=== PATIENT | female | born 1960 | race Caucasian/White ===

== ENCOUNTER 2019-08-09 13:10 | Emergency (ER) | payer BC, OTHER ==
[2019-08-09 13:18] VITALS: BP 149/73; TEMP 98.3
[2019-08-09] MEDS ORDERED: AMOXIC-POT CLAV 875-125MG 1 EACH TAB PO STA (13:45)
[2019-08-09] MEDS ORDERED: DIPH,PERTUS(ACELL)TETVAC-LF 0.5 ML VIAL IM ONE (13:45)
--- NOTE | 2019-08-09 14:36 | XR ---
EXAMINATION TYPE: XR tibia fibula LT DATE OF EXAM: 08/09/2019 CLINICAL HISTORY: pain TECHNIQUE: AP and lateral images of the left tibia and fibula are obtained. COMPARISON: None. FINDINGS: There is no acute fracture/dislocation evident. The joint spaces appear within normal burch its. The overlying soft tissue appears unremarkable. IMPRESSION: There is no acute fracture or dislocation seen. ICD 10 NO FRACTURE, INITIAL EVALUATION
--- NOTE | 2019-08-09 14:41 | ED ---
Animal Bite HPI - General Chief Complaint: Animal Bite Stated Complaint: dog bite Time Seen by Provider: 08/09/19 13:20 Source: patient, RN notes reviewed Mode of arrival: ambulatory Limitations: no limitations - History of Present Illness Initial Comments: 59-year-old female presents emergency Department chief complaint of dog bite to her calf region. Patient states that they were talking across with a neighbor and bit her left and right calf. He states her last tetanus was in 2011. She states she believes the dog is up-to-date vaccination it is a household pet. Patient states that there is a small amount of bleeding into her right She has more pain to the left A small puncture wound. Patient denies other noted injuries at this time. - Related Data Home Medications Medication Instructions Recorded Confirmed Cholecalciferol [Vitamin D3] 2,000 unit PO DAILY 04/01/16 04/01/16 Hydrochlorothiazide [Hydrodiuril] 25 mg PO DAILY 04/01/16 04/01/16 Venlafaxine HCl ER [Effexor Xr] 150 mg PO DAILY 04/01/16 04/01/16 Vitamin B Complex 2 each PO DAILY 04/01/16 04/01/16 Previous Rx's Medication Instructions Recorded Amoxicillin/Potassium Clav 1 tab PO Q12HR #14 tab 08/09/19 [Augmentin 875-125 Tablet] Allergies Allergy/AdvReac Type Severity Reaction Status Date / Time No Known Allergies Allergy Verified 08/09/19 13:16 Review of Systems ROS Statement: Those systems with pertinent positive or pertinent negative responses have been documented in the HPI. ROS Other: All systems not noted in ROS Statement are negative. Past Medical History Additional Past Medical History / Comment(s): "WHITE COAT SYNDROME." VARICOSE VEINS. History of Any Multi-Drug Resistant Organisms: None Reported Past Surgical History: Tonsillectomy Past Anesthesia/Blood Transfusion Reactions: No Reported Reaction Past Psychological History: Anxiety, Depression Smoking Status: Never smoker Past Alcohol Use History: None Reported Past Drug Use History: None Reported - Past Family History Sister(s) Family Medical History: Cancer Mother Family Medical History: Deep Vein Thrombosis (DVT) General Exam Limitations: no limitations General appearance: alert, in no apparent distress Head exam: Present: atraumatic, normocephalic, normal inspection Eye exam: Present: normal appearance, PERRL, EOMI. Absent: scleral icterus, conjunctival injection, periorbital swelling ENT exam: Present: normal exam, normal oropharynx, mucous membranes moist, TM's normal bilaterally Neck exam: Present: normal inspection. Absent: tenderness, meningismus, lymphadenopathy Respiratory exam: Present: normal lung sounds bilaterally. Absent: respiratory distress, wheezes, rales, rhonchi, stridor Cardiovascular Exam: Present: regular rate, normal rhythm, normal heart sounds. Absent: systolic murmur, diastolic murmur, rubs, gallop, clicks Extremities exam: Present: other (Right calf there is a small puncture wound no active bleeding, neurovascular intact, left calf there is a small abrasion with a noted small puncture wound no active bleeding neurovascular intact mild tenderness) Course Vital Signs 08/09/19 13:14 Temperature 98.3 F Pulse Rate 96 Respiratory 16 Rate Blood Pressure 149/73 O2 Sat by Pulse 97 Oximetry Medical Decision Making - Medical Decision Making Patient's tetanus is updated. Patient be discharged on Augmentin. Patient did follow-up dog bite form. Return parameters were discussed. Disposition Clinical Impression: Dog bite Disposition: HOME SELF-CARE Condition: Stable Instructions (If sedation given, give patient instructions): Animal Bite (ED) Additional Instructions: Please return to the Emergency Department if symptoms worsen or any other concerns. Prescriptions: Amoxicillin/Potassium Clav [Augmentin 875-125 Tablet] 1 tab PO Q12HR #14 tab Is patient prescribed a controlled substance at d/c from ED?: No Referrals: Sylvia Arzola MD [Primary Care Provider] - 1-2 days Time of Disposition: 14:40
[2019-08-09 14:45] VITALS: PULSE 88; RESP 18
== END 2019-08-09 14:43 | disposition home or self-care (01) ==
LOC: EC 13:10
DX: S81.832A Puncture wound without foreign body, left lower leg, initial encounter (principal); S81.831A Puncture wound without foreign body, right lower leg, initial encounter; Z23 Encounter for immunization; Z20.3 Contact with and (suspected) exposure to rabies; W54.0XXA Bitten by dog, initial encounter
CPT/HCPCS: 90471; 90715; 99283

== ENCOUNTER → 2020-01-13 | Outpatient (CLI) | payer BC ==
--- NOTE | 2020-01-13 12:12 | XR ---
EXAMINATION TYPE: XR knee complete LT DATE OF EXAM: 01/13/2020 CLINICAL HISTORY: Stiffness and aching pain of left knee for less than one week. No known injury. TECHNIQUE: Three views of the left knee are obtained. COMPARISON: Left tibia fibula radiograph 08/09/2019 FINDINGS: There is no acute fracture/dislocation evident in left knee. There is tricompartmental deg enerative spurring. There is a small suprapatellar joint effusion. Normal osseous mineralization. IMPRESSION: 1. No acute osseous abnormality. 2. 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
== END | disposition home or self-care (01) ==
LOC: RADXRMAIN 11:16
PROVIDERS: ATTEND Family Medicine
DX: M17.12 Unilateral primary osteoarthritis, left knee (principal)

== ENCOUNTER → 2021-05-25 | Outpatient (CLI) | payer BC ==
[2021-05-25 10:09] LABS: HCT 42.3 % (34.0-46.0); HGB 14.5 gm/dL (11.4-16.0); MCH 31.9 pg (25.0-35.0); MCHC 34.4 g/dL (31.0-37.0); MCV 92.9 fL (80.0-100.0); Mean Platelet Volume 8.3; Platelet Count 272 k/uL (150-450); RBC 4.55 m/uL (3.80-5.40); WBC 5.8 k/uL (3.8-10.6)
[2021-05-25 10:21] LABS: ALT 25 U/L (4-34); AST 26 U/L (14-36); African American GFR (CKD) >90 (>60 ml/min/1.73 sqM); Albumin 4.3 g/dL (3.5-5.0); Alkaline Phosphatase 107 U/L (38-126); Anion Gap 6 mmol/L; Blood Urea Nitrogen 14 mg/dL (7-17); Calcium 10.3 mg/dL (8.4-10.2); Carbon Dioxide 30 mmol/L (22-30); Chloride 103 mmol/L (98-107); Glucose 90 mg/dL (74-99); INR 0.9 (<1.2); Non-African American GFR(CKD) 80 (>60 ml/min/1.73 sqM); Partial Thromboplastin Time 26.2 sec (22.0-30.0); Potassium 4.3 mmol/L (3.5-5.1); Prothrombin Time 9.8 sec (9.0-12.0); Sodium 139 mmol/L (137-145); Total Bilirubin 0.6 mg/dL (0.2-1.3); Total Protein 7.1 g/dL (6.3-8.2)
== END | disposition home or self-care (01) ==
LOC: LABWHC1 08:42
PROVIDERS: ATTEND Orthopaedic Surgery
DX: Z01.812 Encounter for preprocedural laboratory examination (principal)
CPT/HCPCS: 36415; 80053; 85027; 85610; 85730; 87070

== ENCOUNTER → 2021-05-25 | Outpatient (CLI) | payer BC ==
--- NOTE | 2021-05-25 12:38 | US ---
EXAMINATION TYPE: US carotid duplex BILAT DATE OF EXAM: 05/25/2021 COMPARISON: NONE CLINICAL HISTORY: H34.211 H34.211 PARTIAL RETINAL ARTERY OCCLUSION, RIGHT EYE. Per eye doctor, choles terol plaque seen in eye. No HTN or high cholesterol per patient. EXAM MEASUREMENTS: RIGHT: Peak Systolic Velocity (PSV) cm/sec ----- Right CCA: 105.0 ----- Right ICA: 104.0 ----- Right ECA: 108.0 ICA/CCA ratio: 1.0 RIGHT: End Diastole cm/sec ----- Right CCA: 29.2 ----- Right ICA: 29.2 ----- Right ECA: 20.8 LEFT: Peak Systolic Velocity (PSV) cm/sec ----- Left CCA: 108.0 ----- Left ICA: 342.0 ----- Left ECA: 118.0 ICA/CCA ratio: 3.2 LEFT: End Diastole cm/sec ----- Left CCA: 33.1 ----- Left ICA: 107.0 ----- Left ECA: 0.0 VERTEBRALS (direction of flow): Right Vertebral: Antegrade Left Vertebral: Antegrade Rhythm: Arrhythmia No increased peak systolic velocity bilateral common carotid arteries. Tortuous course near left romero tid bulb. Severe shadowing plaque at this level. Increased peak systolic and diastolic velocities and abnormal ratio on the left. IMPRESSION: Severe left carotid bulb plaque with suspected significant stenosis may be greater than 70%. Follow-up CTA or MRA of the neck advised to further evaluate and characterize. Criteria for Assigning % of Stenosis / Diameter reduction (Estimation based on the indirect measurements of the internal carotid artery velocities (ICA PSV). 1. Normal (no stenosis)=ICA PSV < 125 cm/s: ratio < 2.0: ICA EDV<40 cm/s. 2. Less than 50% stenosis=ICA PSV < 125 cm/s: ratio < 2.0: ICA EDV<40 cm/s. 3. 50 to 69% stenosis=ICA PSV of 125 to 230 cm/s: ration 2.0 ? 4.0: ICA EDV 40-100 cm/s. 4. Greater than 70% stenosis to near occlusion= ICA PSV > 230 cm/s: ratio > 4.0: ICA EDV > 100 cm/s. 5. Near occlusion= ICA PSV velocities may be low or undetectable: variable ratio and ICA EDV. 6. Total occlusion=unable to detect flow.
--- NOTE | 2021-05-31 08:17 | ECHOF ---
Referral Reason:H34.21 Partial retinal artery occlusion MEASUREMENTS -------- HEIGHT: 167.6 cm WEIGHT: 113.4 kg BP: 120/80 RVIDd: 3.2 cm (< 3.3) IVSd: 1.1 cm (0.6 - 1.1) LVIDd: 4.3 cm (3.9 - 5.3) LVPWd: 1.0 cm (0.6 - 1.1) IVSs: 1.5 cm LVIDs: 3.2 cm LVPWs: 1.6 cm LA Diam: 3.4 cm (2.7 - 3.8) LAESV Index (A-L): 18.82 ml/m Ao Diam: 2.9 cm (2.0 - 3.7) AV Cusp: 2.2 cm (1.5 - 2.6) MV EXCURSION: 17.586 mm (> 18.000) MV EF SLOPE: 122 mm/s (70 - 150) EPSS: 0.4 cm MV E Geoffrey: 0.91 m/s MV DecT: 225 ms MV A Geoffrey: 1.04 m/s MV E/A Ratio: 0.88 RAP: 5.00 mmHg RVSP: 28.99 mmHg FINDINGS -------- Sinus rhythm. This was a technically adequate study. The left ventricular size is normal. There is borderline concentric left ventricular hypertrophy. Overall left ventricular systolic function is normal with, an EF between 55 - 60 %. The right ventricle is normal in size. Normal LA size by volume 22+/-6 ml/m2. The right atrium is normal in size. Interatrial and interventricular septum intact. The aortic valve is trileaflet, and appears structurally normal. No aortic stenosis or regurgitation. Mild mitral regurgitation is present. Mild tricuspid regurgitation present. Right ventricular systolic pressure is normal at < 35 mmHg. The pulmonic valve is normal. The aortic root size is normal. Normal inferior vena cava with normal inspiratory collapse consistent with estimated right atrial pre ssure of 5 mmHg. There is no pericardial effusion. CONCLUSIONS -------- 1. The left ventricular size is normal. 2. There is borderline concentric left ventricular hypertrophy. 3. Overall left ventricular systolic function is normal with, an EF between 55 - 60 %. 4. The aortic valve is trileaflet, and appears structurally normal. No aortic stenosis or regurgitati on. 5. Mild mitral regurgitation is present. 6. Mild tricuspid regurgitation present. 7. There is no pericardial effusion. BALANCE ASSEMBLER: CONNER Watkins
== END | disposition home or self-care (01) ==
LOC: RADUSWWP 10:34
PROVIDERS: ATTEND Family Medicine
DX: H34.211 Partial retinal artery occlusion, right eye (principal); I65.22 Occlusion and stenosis of left carotid artery; I35.8 Other nonrheumatic aortic valve disorders
CPT/HCPCS: 93306; 93880

== ENCOUNTER 2021-06-05 10:10 | Day surgery (SDC) | payer BC ==
[2021-05-31 13:12] VITALS: BMI 40.3
[~2021-06-05 10:10] MED LIST: ACETAMINOPHEN TAB 500 MG TAB PO PRN; DEXAMETHASONE SOD PHOSPHATE 4 MG/ML 1 ML VIAL IV ONE; GABAPENTIN 300 MG CAP PO PRN; HYDROmorphone 0.2 MG/1 ML SYRINGE IVP PRN; HYDROmorphone 0.5 MG/0.5 ML SYRINGE IVP PRN; HYDROmorphone 1 MG/ML 1 ML SYRINGE IVP PRN; MAGNESIUM HYDROXIDE 2,400 MG/10 ML CUP PO PRN; MELOXICAM 7.5 MG TAB PO PRN; NALOXONE 0.4 MG/ML 1 ML VIAL IV PRN; ONDANSETRON 4 MG/2 ML VIAL IVP ONE; ONDANSETRON 4 MG/2 ML VIAL IVP PRN; ROPIVACAINE 246.25 MG, EPINEPHrine 0.5 MG, KETOROLAC (30 mg/mL) 30 MG, cloNIDine HCL/PF... MISCELLANE PRN; TRANEXAMIC ACID 1,000 MG in SODIUM CHLORIDE 0.9% 100 ML IVPB PRN
[2021-06-05] MEDS ORDERED: LACTATED RINGERS 1,000 ML IV ONE ×3 (10:23→12:28)
[2021-06-05] MEDS ORDERED: HEPARIN SODIUM,PORCINE 10,000 UNIT/ML 1 ML VIAL ONE (11:35)
[2021-06-05] MEDS ORDERED: KETAMINE 10 MG/ML 20 ML VIAL ONE (11:35)
[2021-06-05] MEDS ORDERED: PROPOFOL 10 MG/ML 20 ML VIAL IV ONE (11:35)
[2021-06-05] MEDS ORDERED: MIDAZOLAM 2 MG/2 ML VIAL ONE (11:35)
[2021-06-05] MEDS ORDERED: SODIUM CHLORIDE 0.9% 100 ML BAG ONE (11:35)
[2021-06-05] MEDS ORDERED: .fentaNYL (PF) 50 MCG/ML 2 ML AMP ONE (11:35)
[2021-06-05] MEDS ORDERED: diphenhydrAMINE 50 MG/ML 1 ML VIAL ONE (11:35)
[2021-06-05] MEDS ORDERED: SODIUM CHLORIDE 0.9% IRRIG 1,000 ML BTL IRRIGATION ONE (11:35)
[2021-06-05] MEDS ORDERED: TRANEXAMIC ACID 1,000 MG/10 ML VIAL ONE (11:35)
[2021-06-05] MEDS ORDERED: ceFAZolin 1,000 MG in SODIUM CHLORIDE 0.9% 1,000 ML IRRIGATION ONE (11:39)
[2021-06-05] MEDS ORDERED: ROPIVACAINE 5 MG/ML 30 ML VIAL MISCELLANE ONE ×2 (12:07→12:49)
--- NOTE | 2021-06-05 12:58 | P.OP ---
Date of Procedure: 06/05/21 Preoperative Diagnosis: Severe osteoarthritis right hip Postoperative Diagnosis: Severe osteoarthritis right hip Procedure(s) Performed: Right total hip arthroplasty with a direct anterior approach Implants: [employer] Polarstem standard size 5 [employer] R3, 3 hole hemispherical acetabular shell, 52 mm [employer] Reflection 6.5 mm cancellus screw, 20 mm 2 [employer] R3, XLPE 20 acetabular liner [employer] Oxinium femoral head 36 m, -3 All components were press-fit. The articulation is Oxinium on polyethylene. Anesthesia: spinal Surgeon: Mani Wu Fitness And Wellness Manager #1: Mckenzie Lovett Estimated Blood Loss (ml): 200 (67 mL returned with Cell Saver) Pathology: other (Femoral head) Condition: stable Disposition: PACU Indications for Procedure: After failure of conservative treatment we discussed the surgical and nonsurgical treatment options at length. Patient wishes to proceed with a total hip arthroplasty with a direct anterior approach. Complications specific to this procedure were discussed at length, including but not limited to infection, leg length discrepancy, dislocation, nerve injury, and fracture. Covid-19 was also discussed at length with the patient, and they are aware of the current policies and procedures. The patient was given the option of delaying surgery, but they elect to proceed knowing these risks. Patient is aware of all these complications and informed consent was obtained Operative Findings: The operative findings are consistent with severe osteoarthritis of the right hip Description of Procedure: Patient was seen and evaluated in the preoperative area and the consent was reviewed. The operative site was marked with a skin marker. The patient was then brought to the operating room and given preoperative antibiotics intravenously. 1 g of Tranexamic acid was also given intravenously. A spinal anesthetic was administered by the anesthesia department. The patient was then placed on the [place] table with the bony prominences well-padded. The hip area was then prepped with a ChloraPrep solution and draped in the usual sterile fashion. A universal timeout was then performed, which confirmed the patient's name, surgical site, ALLERGIES, and procedure being performed on the consent. Next the incision site was located at 1 cm distal and 2 cm lateral to the anterior superior iliac spine. The skin and subcutaneous tissues were sharply incised. Incision was carefully dissected down to the fascia overlying the tensor fascia aleyda muscle. This fascia was then incised in line with the incision. Care was taken to stay laterally in order to avoid injuring the lateral femoral cutaneous nerve. Next, using blunt finger dissection, the tensor fascia aleyda muscle was dissected off its investing fascia. The muscle was then carefully retracted laterally with a cobra retractor over the lateral neck of the femur. Next, the circumflex vessels were identified and cauterized using the AquaMantis device. The anterior hip capsule was then exposed. The capsule was then opened and an inverted T fashion. Cobra retractors were then placed intracapsularly. The retractors were maintained intracapsular throughout the procedure. The proximal femur was then visualized. Fluoroscopic x-rays were then taken in order to evaluate the preoperative leg lengths. A small amount of traction was placed on the leg. The femoral neck was then osteotomized appropriate level above the lesser trochanter. A small wedge of bone was then removed from the remaining femoral head. Next, using a corkscrew the femoral head was removed from the acetabulum. On gross visual inspection, the femoral head had complete loss of articular cartilage and multiple periarticular osteophytes. The femoral head was then measured. Attention was then turned to the acetabulum. The acetabulum was exposed and any remaining labrum was excised. Sequential reaming of the acetabulum was performed using fluoroscopic guidance until there was a good bed of bleeding cancellus bone. When the appropriate size was reached, a trial was then placed. The position and fit of the trial was checked with fluoroscopy. The trial was then removed. Then, using fluoroscopic guidance, the final implant was impacted at 20 of anteversion and 40 of abduction, and fully seated in the acetabulum. 2 screws were then placed in the acetabulum. Again fluoroscopy was used to check position of the screws. Next, the liner was then impacted, with a 20 elevated liner located in the anterior superior quadrant. Component locking was confirmed. Attention was then directed to the femur. With the aid of the [place] table, the femur was externally rotated to approximately 130, extended, and adducted under the opposite leg. A side hook was then placed under the proximal femur, and the side hook elevator was used to elevate the proximal femur while releasing the capsule. Retractors were then placed. A capsular release was performed, as well as a release of the conjoined tendon, which afforded excellent visualization of the proximal femur. Next, a box osteotome was used to lateralize the proximal femur. A sugar coating hand was then used to locate the femoral canal. Sequential broaching was then performed with appropriate size which afforded excellent fixation in the proximal femur. A trial was then placed with appropriate head and neck, and the hip was gently reduced with the aid of the [place] table. Fluoroscopy was then used to check position of the components, as well as to ensure equal leg lengths. The hip was then gently dislocated and the trials were then removed. Final implants were then impacted and the hip was again reduced. Final fluoroscopic x-rays confirmed that the components were in anatomic position, as well as equal leg lengths. The hip was also taken through range of motion, and found to be stable. The hip was then copiously irrigated with antibiotic solution with pulsatile lavage. The hip was then irrigated with Irrisept solution. The soft tissues were then injected with a 60 mg of .05% ropivacaine. A second dose of 1 g of Tranexamic acid was also given intravenously. Any blood collected by Cell Saver was then returned to the patient at this time. The fascia was then closed with 2-0 strata fix suture. The subcutaneous tissue was closed with 3-0 Vicryl. The subcuticular tissue was closed with 3-0 strata fix suture. The skin was then closed with Exofin skin glue. After the glue and dried, and Optifoam silver impregnated dressing was applied. The patient was then transferred to the recovery room in stable condition. The medical office receptionist assistant DOLLY Buitrago was required due to the complexity of surgery, and the need for skilled surgical aides teacher for positioning, draping, exposure, retraction, and closure of the wound.
--- NOTE | 2021-06-05 13:36 | XR ---
EXAMINATION TYPE: XR Hip Limited RT DATE OF EXAM: 06/05/2021 COMPARISON: NONE HISTORY: Postop TECHNIQUE: One view submitted. FINDINGS: There is postsurgical change in near anatomic alignment. There is soft tissue edema and emphysema. IMPRESSION: 1. Postoperative change. Appears in near-anatomic alignment.
--- NOTE | 2021-06-05 14:28 | FL ---
Fluoroscopy HISTORY: Anterior hip replacement on the right 47 seconds fluoroscopy time supplied to the referring clinician. 2 intraoperative C-arm images docum ent the procedure. See dictated report from orthopedic surgery.
[2021-06-05] MEDS: LACTATED RINGERS 1,000 ML IV SCH (14:35)
[2021-06-05] MEDS: SODIUM CHLORIDE 0.9% 1,000 ML IV SCH (14:35)
[2021-06-05] MEDS: HYDROcodone/APAP 7.5-325MG 1 EACH TAB PO PRN ×3 (16:22→21:17)
[2021-06-05] MEDS: PANTOPRAZOLE 40 MG TABLET PO SCH (17:13)
[2021-06-05 20:16] VITALS: RESP 17
--- NOTE | 2021-06-05 20:52 | CONS ---
CONSULTATION REASON FOR CONSULTATION: Advice regarding hypertension and other multiple medical issues, requested by Dr. Wu. HISTORY OF PRESENT ILLNESS: This 60-year-old woman with a past medical history of hypertension, DJD, history of white coat syndrome, being followed by Dr. Sylvia Arzola in the outpatient setting, was admitted after right total hip joint arthroplasty with direct anterior approach by Dr. Wu. There is no history of any fever, rigors or chills. No history of chest pain, palpitations, headache, loss of consciousness, seizures at this time. PAST MEDICAL HISTORY: Hypertension, history of DJD. HOME MEDICATIONS: Hydrochlorothiazide, Effexor, Detrol _, Senokot, Zofran, [place]. Doses are reviewed. ALLERGIES: NONE. FAMILY HISTORY: History of overactive bladder cancer in the family. SOCIAL HISTORY: No history of smoking. No history of alcohol intake. REVIEW OF SYSTEMS: ENT: No diminished hearing. No diminished vision. CARDIOVASCULAR SYSTEM: No angina, palpitations. RESPIRATORY SYSTEM: No cough, hemoptysis. GI: No nausea, vomiting, diarrhea. : No dysuria. NERVOUS SYSTEM: No numbness, weakness. ALLERGY/IMMUNOLOGY: No asthma or hay fever. MUSCULOSKELETAL: As mentioned earlier. HEMATOLOGY/ONCOLOGY: No history of anemia. ENDOCRINE: No history of diabetes or hypothyroidism. CONSTITUTIONAL: As mentioned earlier. DERMATOLOGY: Negative. RHEUMATOLOGY: Negative. PSYCHIATRY: As mentioned earlier. PHYSICAL EXAMINATION: Patient alert and oriented x3. Pulse 79, blood pressure 130/83, respiration 18, temperature 97.6, pulse ox 99% on room air. HEENT: Conjunctivae normal. NECK: No jugular venous distention. CARDIOVASCULAR: S1, S2 muffled. RESPIRATION: Breath sounds diminished at the bases. No rhonchi. No crackles. ABDOMEN: Soft, nontender. No mass palpable. LEGS: Status post hip arthroplasty. NERVOUS SYSTEM: Higher functions as mentioned earlier. Moves all 4 limbs. No focal motor or sensory deficit. LYMPHATICS: No lymph node palpable in neck, axillae or groin. SKIN: No ulcer, rash, bleeding. JOINTS: No active deforming arthropathy. LABS: Preop labs show CBC within normal limits. Coags are normal. Chemistry is also within normal limits. Calcium is 10.3. ASSESSMENT: 1. Status post right total hip joint arthroplasty. 2. Hypertension. 3. History of degenerative joint disease. 4. History of white coat syndrome. 5. History of varicose veins. 6. History of partial retinal artery occlusion on the right side. 7. History of tonsillectomy. 8. History of anxiety, depression. 9. Obesity with body mass of 39.9. 10.FULL CODE. RECOMMENDATIONS AND DISCUSSION: In this 60-year-old woman who presented with multiple medical issues, at this time I would recommend to continue the home medications. DVT prophylaxis. Incentive spirometry. Recommend close followup with Dr. Sylvia Arzola after discharge. We will follow the patient closely with you. Pain management. Thank you, Dr. Wu, for letting us participate in the care of this patient. MMODL / IJN: [id number] / MTDLea
[2021-06-05] MEDS ORDERED: SENNOSIDES-DOCUSATE SODIUM 1 EACH TAB PO SCH (21:00)
[2021-06-05] MEDS: ASPIRIN 325 MG TAB PO SCH (21:11)
[2021-06-06] MEDS: SODIUM CHLORIDE 0.9% 1,000 ML IV SCH (02:30)
[2021-06-06] MEDS: LACTATED RINGERS 1,000 ML IV SCH (04:31)
[2021-06-06] MEDS: HYDROcodone/APAP 7.5-325MG 1 EACH TAB PO PRN ×2 (05:26→13:30)
--- NOTE | 2021-06-06 08:00 | P.DS ---
Providers Expected date of discharge: 06/06/21 Attending physician: Mani Wu Consults: 06/05/21 08:55 Consult Physician Routine Consulting Provider: Tabby Lucero Consult Reason/Comments: medical management Do you want consulting provider notified?: Yes Primary care physician: Sylvia Arzola - Discharge Diagnosis(es) (1) Primary localized osteoarthritis of right hip Current Visit: Yes Status: Acute (2) Status post total hip replacement, right Current Visit: Yes Status: Acute Hospital Course: This is a 60-year-old Female with known history of degenerative arthritis of the Right hip. The patient presents for evaluation. After discussion and consideration patient elects to proceed with total hip arthroplasty with direct anterior approach. The patient is seen preoperatively by primary care physician and cleared for surgery. Patient is admitted to [facility] on 06/05/2021 for total hip arthroplasty with direct anterior approach. The procedure is performed without complication or sequelae. The patient is doing well postoperatively. Labs and vital signs are stable on day of discharge. On day of discharge patient's hip incision is healing well. There is minimal erythema. There is no drainage noted at this time. There is minimal soft tissue swelling to the hip and thigh. Patient has full foot and ankle motion without difficulty or pain. Neurovascular status to the lower extremity is intact. Patient is discharged to home in good condition. Please see med rec for accurate list of home medications. Patient Condition at Discharge: Good Plan - Discharge Summary Discharge Rx Participant: No New Discharge Prescriptions: New Aspirin 325 mg PO BID #60 tab Ondansetron Odt [Zofran Odt] 1 tab PO Q8HR PRN #10 tab PRN Reason: Nausea HYDROcodone/APAP 7.5-325MG [[place] 7.5-325] 1 - 2 tab PO Q6H PRN #32 tab PRN Reason: Pain Sennosides [Senokot] 2 tab PO DAILY PRN #60 tablet PRN Reason: Constipation No Action Venlafaxine HCl ER [Effexor Xr] 150 mg PO DAILY hydroCHLOROthiazide [Hydrodiuril] 25 mg PO DAILY Tolterodine ER [Detrol LA] 4 mg PO DAILY Discharge Medication List Venlafaxine HCl ER [Effexor Xr] 150 mg PO DAILY 04/01/16 [History] hydroCHLOROthiazide [Hydrodiuril] 25 mg PO DAILY 10/10/16 [History] Tolterodine ER [Detrol LA] 4 mg PO DAILY 05/31/21 [History] Aspirin 325 mg PO BID #60 tab 06/05/21 [Rx] HYDROcodone/APAP 7.5-325MG [[place] 7.5-325] 1 - 2 tab PO Q6H PRN #32 tab 06/05/21 [Rx] Ondansetron Odt [Zofran Odt] 1 tab PO Q8HR PRN #10 tab 06/05/21 [Rx] Sennosides [Senokot] 2 tab PO DAILY PRN #60 tablet 06/05/21 [Rx] Follow up Appointment(s)/Referral(s): Mani Wu DO [Doctor of Osteopathic Medicine] - 2 Weeks Activity/Diet/Wound Care/Special Instructions: Weightbearing as tolerated with walker. Leave dressing intact. Dressing may be removed by home care nurse or by patient in 7 days. Then change dressing twice daily until follow up. May shower with initial dressing intact and after removal. If dressing become saturated, please remove. Please take aspirin 325mg twice daily for 30 days to prevent blood clots. Recommend use of compression stockings daily until follow up to help prevent swelling and blood clots. May remove at night before sleeping. Please follow-up with [facility] in 2 weeks and call with any questions or concerns, . Discharge Disposition: HOME WITH HOME HEALTH SERVICES
[2021-06-06 08:33] VITALS: TEMP 97.5
[2021-06-06] MEDS: ASPIRIN 325 MG TAB PO SCH (08:40)
[2021-06-06] MEDS: PANTOPRAZOLE 40 MG TABLET PO SCH (08:41)
[2021-06-06] MEDS ORDERED: OXYBUTYNIN XL 5 MG TAB.ER.24 PO SCH (09:00)
[2021-06-06] MEDS ORDERED: hydroCHLOROthiazide 25 MG TAB PO SCH (09:00)
[2021-06-06] MEDS ORDERED: VENLAFAXINE HCL ER 150 MG CAP PO SCH (09:00)
[2021-06-06] MEDS ORDERED: MELOXICAM 7.5 MG TAB PO SCH (09:00)
[2021-06-06 09:38] LABS: Basophils # (A) 0.01 X 10*3/uL (0.00-0.10); Basophils % (A) 0.1 %; Eosinophils # (A) 0.05 X 10*3/uL (0.04-0.35); Eosinophils % (A) 0.5 %; HCT 38.5 % (37.2-46.3); HGB 12.8 g/dL (12.0-15.0); Lymphocytes # (A) 2.26 X 10*3/uL (0.90-5.00); MCH 31.5 pg (27.0-32.0); MCHC 33.2 g/dL (32.0-37.0); MCV 94.8 fL (80.0-97.0); Monocytes # (A) 1.23 X 10*3/uL (0.20-1.00); Monocytes % (A) 12.5 %; Neutrophils # (A) 6.26 X 10*3/uL (1.80-7.70); Neutrophils % (A) 63.7 %; Platelet Count 231 X 10*3/uL (140-440); RBC 4.06 X 10*6/uL (4.10-5.20); RDW 13.3 % (11.5-14.5); WBC 9.83 X 10*3/uL (4.50-10.00)
[2021-06-06 14:14] VITALS: BP 123/69; PULSE 84
--- NOTE | 2021-06-06 14:50 | P.PN ---
Subjective Progress Note Date: 06/06/21 This is a 60-year-old female who was recently admitted with orthopedic services and underwent right total hip joint arthroplasty with Dr. Wu. Patient is doing well and up and working with physical therapy twice today and being arranged for discharge today. Patient is being closely monitored and scheduled for discharge today. Patient denies any shortness of breath or chest pain and incentive spirometer at the bedside and encourage the patient to continue using at least 10 times every hour while awake. Patient being arranged with home care and rehab in the outpatient setting. Patient currently denies any chest pain, shortness of breath, or palpitations. Patient is afebrile. No reports of nausea or vomiting and patient tolerating diet. Patient reports the passing gas although has not had a bowel movement as of yet. Patient encouraged and instructed to follow-up with her primary care provider Dr. Arzola in the outpatient setting. Labs: WBC is 9.83, hemoglobin is 12.8, platelets are 231 Review of systems: Constitutional: No reports of fatigue, fever, or chills Cardiovascular: No reports of chest pain or palpitations Respiratory: No reports of shortness of breath or cough GI: No reports of nausea, vomiting, or diarrhea, reports passing gas but no bowel movement : No reports of dysuria or retention Neurovascular: No reports of weakness or numbness All medications have been reviewed Physical Exam: Gen: This is a 60-year-old female awake, alert and oriented 3, well-developed, well-nourished. Temp is 97.5F, pulse is 72, respirations are 17, blood pressure is 117/74, oxygen saturation is 98% on room air HEENT: Head is atraumatic, normocephalic. Pupils equal, round. Sclerae is anicteric. NECK: Supple. No JVD. No lymphadenopathy. No thyromegaly. LUNGS: Diminished breath sounds bilaterally with no wheezing or rhonchi noted. No intercostal retractions. HEART: S1, S2 are muffled ABDOMEN: Soft. Bowel sounds are present. No masses. No tenderness. EXTREMITIES: No pedal edema. No calf tenderness. Right hip surgical site dry and intact NEUROLOGICAL: Patient is awake, alert and oriented x3. Cranial nerves 2 through 12 are grossly intact. Assessment: Status post right total hip joint arthroplasty hypertension History of degenerative joint disease history of white coat syndrome History of varicose veins History of partial retinal artery occlusion on the right side History of tonsillectomy History of anxiety, depression obesity with a body mass index of 39.9 full code Plan: Recommend to continue with current medications and management. Pain management per orthopedic services. Encouraged incentive spirometer use and instructed the patient to keep using at least 10 times every hour while awake even in the outpatient setting. Appropriate home medications have been resumed and patient is to follow-up with primary care provider in the outpatient setting. Arrangements are being made for home care and physical therapy in the outpatient setting. Patient anticipates being discharged today and case management following arranging with home care in the outpatient setting. Will continue to follow along with orthopedic services during hospitalization. Thank you for this consultation. Objective - Vital Signs Vital signs: Vital Signs Temp 97.5 F L 06/06/21 08:00 Pulse 72 06/06/21 08:00 Resp 17 06/06/21 08:00 BP 117/74 06/06/21 08:00 Pulse Ox 98 06/06/21 08:00 Intake & Output 06/05/21 06/06/21 06/06/21 18:59 06:59 18:59 Intake Total 1841 Output Total 200 1600 Balance 1641 -1600 Weight 112 kg Intake: IV 1351 Intake, IV Titration 50 Amount ceFAZolin 2 gm In Sodium 50 Chloride 0.9% 50 ml @ 100 mls/hr IVPB Q8H [facility] Rx#: [id number] Oral 440 Output: Urine 1600 Estimated Blood Loss 200 Other: Voiding Method Toilet - Labs CBC & Chem 7: 06/06/21 06:01 Labs: Abnormal Lab Results - Last 24 Hours (Table) 06/06/21 Range/Units 06:01 RBC 4.06 L (4.10-5.20) X 10*6/uL Monocytes # 1.23 H (0.20-1.00) X 10*3/uL
== END 2021-06-06 14:06 | disposition home health service (06) ==
LOC: OR 10:10 → 4SSUR 14:29 → OR 06-06 14:06
PROVIDERS: ATTEND Orthopaedic Surgery
DX: M16.11 Unilateral primary osteoarthritis, right hip (principal); Z20.822 Contact with and (suspected) exposure to COVID-19; I10 Essential (primary) hypertension; F32.9 Major depressive disorder, single episode, unspecified; Z79.899 Other long term (current) drug therapy
CPT/HCPCS: 97161; 97165; 86891; 86900; 86901; 85025; 86850; 88300; 87635; 73501; 27130; C1776; J2250; J1200; J1644; J1100; J0690 ×3; J2405; J3010; J2795; J2704

== ENCOUNTER → 2021-07-18 | Outpatient (CLI) | payer BC ==
--- NOTE | 2021-07-18 10:27 | CT ---
EXAMINATION TYPE: CT angio neck DATE OF EXAM: 07/18/2021 HISTORY: carotid stenosis COMPARISON: Carotid ultrasound May 25, 2021. CT DLP: 307.6 mGycm. Automated Exposure Control for Dose Reduction was Utilized. TECHNIQUE: CTA scan of the neck is performed with IV Contrast, patient injected with 65 mL of Isovue 370, axial images are obtained, coronal and sagittal reformatted images are reviewed. 3D reconstruct ed images are created on an independent workstation and reviewed. FINDINGS: Carotid/Vascular Structures: Normal 3 vessel origins from the aortic arch. Normal origin right common carotid artery from the right brachiocephalic artery. No significant plaque or stenosis in the commo n or internal carotid arteries including at the level of bilateral carotid bulbs. Patent external car otid arteries bilaterally without significant plaque or stenosis. Abnormal ultrasound findings are th ought to be due to left-sided tortuosity at the bulb. Other: Scattered subcentimeter thyroid nodules. Mild emphysematous change in the visualized upper gianna gs. IMPRESSION: No significant stenosis in common or internal carotid arteries bilaterally with particul ar attention to the proximal left internal carotid artery just past the carotid bulb at area of ultra sound concern. NASCET criteria was used in interpretation of this exam?
== END | disposition home or self-care (01) ==
LOC: RADCTMAIN 08:02
PROVIDERS: ATTEND Surgery
DX: I65.29 Occlusion and stenosis of unspecified carotid artery (principal)
CPT/HCPCS: 70498; Q9967

== ENCOUNTER → 2023-11-06 | Outpatient (CLI) | payer MEDICARE ==
[2023-11-06 18:07] LABS: Basophils # (A) 0.03 X 10*3/uL (0.00-0.10); Basophils % (A) 0.4 %; Eosinophils # (A) 0.13 X 10*3/uL (0.04-0.35); Eosinophils % (A) 1.8 %; HCT 43.1 % (37.2-46.3); HGB 14.6 g/dL (12.0-15.0); Lymphocytes # (A) 2.26 X 10*3/uL (0.90-5.00); Lymphocytes % (A) 30.5 %; MCH 31.4 pg (27.0-32.0); MCHC 33.9 g/dL (32.0-37.0); MCV 92.7 FL (80.0-97.0); Mean Platelet Volume 11.8 FL (9.5-12.2); Monocytes # (A) 0.68 X 10*3/uL (0.20-1.00); Monocytes % (A) 9.2 %; NRBC Per 100 WBC 0 X 10*3/uL (0.00-0.01); Neutrophils % (A) 57.8 %; Platelet Count 276 X 10*3/uL (140-440); RBC 4.65 X 10*6/uL (4.10-5.20); RDW 13.4 % (11.5-14.5); WBC 7.42 X 10*3/uL (4.50-10.00)
[2023-11-06 18:38] LABS: ALT 18 U/L (8-44); AST 22 U/L (13-35); Albumin 4.5 g/dL (3.8-4.9); Albumin/Globulin Ratio 2.25 Ratio (1.60-3.17); Alkaline Phosphatase 118 U/L (41-126); Blood Urea Nitrogen 15.2 mg/dL (9.0-27.0); Calcium 10.4 mg/dL (8.7-10.3); Carbon Dioxide 22.4 mmol/L (21.6-31.8); Chloride 102 mmol/L (96-109); Glucose 103 mg/dL (70-110); Magnesium 2.1 mg/dL (1.5-2.4); Phosphorus 3.2 mg/dL (2.4-5.1); Potassium 3.8 mmol/L (3.5-5.5); Sodium 140 mmol/L (135-145); Total Bilirubin 0.4 mg/dL (0.3-1.2); Total Protein 6.5 g/dL (6.2-8.2)
[2023-11-07 13:26] LABS: Zinc, Serum 88 ug/dL (60-130)
== END | disposition home or self-care (01) ==
LOC: LABWHC1 14:47
PROVIDERS: ATTEND Family Medicine
DX: Z13.21 Encounter for screening for nutritional disorder (principal); I10 Essential (primary) hypertension; G25.0 Essential tremor
CPT/HCPCS: 36415; 80053; 82180; 82306; 82607; 83735; 84100; 84207; 84425; 84630; 85025